=== PATIENT | female | born 1975 | race Caucasian/White ===

== ENCOUNTER → 2018-05-24 11:37 | Outpatient (CLI) | payer OTHER, SELFPAY | DX: Z23 Encounter for immunization (principal) | CPT/HCPCS: 90471; 90686 ==

== ENCOUNTER → 2019-02-01 08:26 | Outpatient (CLI) | payer OTHER, SELFPAY ==
--- NOTE | 2019-02-01 | DI.MG.S_ITS ---
BILATERAL DIGITAL SCREENING MAMMOGRAM 3D/2D WITH CAD: 02/01/2019 CLINICAL: Routine screening. Family history of breast cancer. Comparison is made to exams dated: 03/19/2017 mammogram, 01/01/2017 breast MRI, 06/04/2016 mammogram, and 01/14/2015 mammogram - [facility]. The tissue of both breasts is heterogeneously dense. This may lower the sensitivity of mammography. Current study was also evaluated with a Computer Aided Detection (CAD) system. No significant masses, calcifications, or other findings are seen in either breast. There has been no significant interval change. IMPRESSION: NEGATIVE There is no mammographic evidence of malignancy. A 1 year screening mammogram is recommended. This exam was interpreted at Station ID: [id number]. NOTE: For mammograms, a report in lay terms will be sent to the patient. Approximately 15% of breast malignancies will not be visualized mammographically. In the management of a palpable breast mass, a negative mammogram must not discourage biopsy of a clinically suspicious lesion. Electronically Signed By: Akira miles/franko:02/01/2019 11:41:02 copy to: Keila Thurman letter sent: Normal Exam ACR BI-RADS Category 1: Negative 3341F
== END ==
PROVIDERS: Visit Provider Obstetrics & Gynecology
DX: Z12.31 Encounter for screening mammogram for malignant neoplasm of breast (principal); Z80.3 Family history of malignant neoplasm of breast
CPT/HCPCS: 77063; 77067

== ENCOUNTER → 2019-06-06 14:34 | Outpatient (CLI) | payer OTHER, SELFPAY | PROVIDERS: PCP Family Medicine | DX: Z23 Encounter for immunization (principal) | CPT/HCPCS: 90471; 90686 ==

== ENCOUNTER → 2020-06-06 | Outpatient (CLI) | payer OTHER, SELFPAY | PROVIDERS: PCP Family Medicine; Referring Provider Internal Medicine; Visit Provider Internal Medicine | DX: Z23 Encounter for immunization (principal) | CPT/HCPCS: 90471; 90686 ==

== ENCOUNTER → 2020-07-18 09:17 | Outpatient (CLI) | payer OTHER, SELFPAY ==
[2020-07-18 10:51] LABS: COVID19 -Nasal RAPID Negative (Negative)
== END ==
PROVIDERS: PCP Family Medicine; Referring Provider Surgery; Visit Provider Surgery
DX: Z11.59 Encounter for screening for other viral diseases (principal); Z01.812 Encounter for preprocedural laboratory examination
CPT/HCPCS: 87635; C9803

== ENCOUNTER 2020-07-19 07:24 | Day surgery (SDC) | payer OTHER, SELFPAY ==
[2020-07-19] VITALS (13 sets, daily range): BP systolic 83–100; BP diastolic 42–56; PULSE 59–76; RESP 11–20; TEMP 36.2–37.1; O2SAT 97–100; BMI 23.6
[2020-07-19] MEDS: SODIUM CHLORIDE 0.9% 1,000 ML 200 ML IV ×2 (08:08→10:10)
--- NOTE | 2020-07-19 08:36 | PM.HP.1 ---
History of Present Illness History of Present Illness Date Patient Seen: 07/19/20 Time Patient Seen: 08:36 Chief complaint: SCREENING COLONOSCOPY Narrative: This is a 45-year-old woman with history of a change in bowel habits. She has been having difficulty with constipation. She denies any melena, hematochezia, unexplained weight loss, unexplained abdominal pain. She has a family history of colon cancer in 2 secondary relatives. No colon cancer in primary relatives. She is otherwise healthy and takes no home medications. ROS: Positive for constipation. Thirteen system review is otherwise negative other than as mentioned below and in HPI. PE: GENERAL: Well groomed and cooperative. Appears stated age. Answers questions promptly and appropriately. Vital signs noted. HENT: Normocephalic, atraumatic. Hearing intact. EYES: Conjunctiva pink, sclera white, no periorbital swelling. CARDIOVASCULAR: Regular rate. No pedal edema. RESPIRATORY: Non-tachypneic, breathing comfortably on room air. GASTROINTESTINAL: Abdomen soft and non-distended GENITALURINARY: No flank tenderness. MUSCULOSKELETAL: Equal tone and mass bilaterally. SKIN: Warm, dry, soft, appropriate color for ethnicity. No other lesions, rashes, or wounds. NEURO: Alert and Oriented X 3. No gross sensory deficits, or cognitive issues. PSYCH: Appropriate affect and mood. Patient History Medical History Bowel habit changes Constipation Infiltrative basal cell carcinoma (BCC) (~2015) Normal Papanicolaou smear Surgical History History of third molar tooth extraction Status post breast biopsy Status post Mohs micrographic surgery for basal cell carcinoma (BCC) (12/11/15) Family & Social History Family History Father Age: 77 Diabetes mellitus Grandmother Essential hypertension Mother Age: 76 Breast cancer Grandfather Diabetes mellitus Essential hypertension Grandmother Diabetes mellitus Grandfather No problems noted. Sister No problems noted. Family/Other Colorectal cancer Social History: household members spouse Tobacco & Substance use: Smoking Status Never smoker alcohol intake frequency a few times a week Substance Use Type does not use Meds Home Medications and Allergies Home Medications Medication Instructions Recorded Confirmed Type No Known Home Medications 07/19/20 07/19/20 History Allergies Allergy/AdvReac Type Severity Reaction Status Date / Time No Known Drug Allergies Allergy Verified 07/19/20 07:43 Exam Vital Signs (past 8 hours): - 07/19/20 07:47 Temperature 98.8 F Pulse Rate 67 Respiratory Rate 20 Blood Pressure 100/49 L Pulse Oximetry 100 Oxygen Delivery Method Room Air Assessment & Plan Assessment and plan (1) Bowel habit changes: Status: Acute (2) Constipation: Status: Acute Assessment & Plan narrative: Risks and benefits of screening colonoscopy and possible polypectomy were discussed with the patient including risk of bleeding, perforation, need for additional procedures, risks of anesthesia. The patient desires to proceed with the colonoscopy procedure. COVID-19 COVID-19 status: Negative Result date/Date tested (Pos, Neg/Pending): 07/18/20 Time Spent With Patient Time with patient: 15-24 minutes Quality VTE Deep Vein Thrombosis/Pulmonary Embolism Present on Admission: No
--- NOTE | 2020-07-19 08:40 | PM.OP.ENDO ---
Operative Date/Time/Diagnoses Date of procedure: 07/19/20 Time of procedure: 08:40 Pre-op diagnosis: Change in bowel habits Post-op diagnosis: other (Very tortuous colon, normal mucosa) Procedure & Clinicians Study performed: Colonoscopy Procedural sedation performed by the endoscopist Same procedure as scheduled: Yes Indications: Change in bowel habits Surgeon: Sandra Tellez Procedure Notes SCOAP/Timeout: Performed Procedure in detail: The patient was brought to the room and placed in left lateral decubitus position with all bony prominences padded. A time-out was performed and then the patient was given procedural sedation starting with 4 mg of Versed and 100 mcg of fentanyl. A total of 12 mg of Versed and 400 micro g of fentanyl were given for the entire procedure. Vitals were monitored throughout the procedure and remained stable. Once adequately sedated, the procedure was begun. A rectal exam was performed revealing no abnormalities. The colonoscope was then introduced to the rectum and advanced carefully through the rectal folds. I was not able to get around the rectosigmoid junction with the adult scope, and so the scope was withdrawn and a pediatric scope was brought into the room. I again began the procedure using a pediatric scope. I was able to navigate some very tortuous turns in the sigmoid colon. Throughout the procedure the colon was very tortuous and difficult to navigate. We used multiple maneuvers including the scope stiffener, counter pressure on the abdominal wall, and positioning the patient on her back. With all of these advanced maneuvers, we were able to eventually reach the cecum safely. The colon is very tortuous throughout its entire length, with somewhat poor muscular definition. The cecum was identified by the appendiceal orifice, the mucosal tri-fold, and the ileocecal valve. The scope was then retracted while rotating side to side and examining each mucosal fold. No mucosal abnormalities or polyps were seen. At the conclusion of the procedure retroflexion was performed and small grade 1-2 internal hemorrhoids without stigmata of bleeding were seen. The scope was then withdrawn from the rectum the procedure was concluded. The patient tolerated the procedure well and was transferred to the PACU in stable condition. Scope withdrawal time: 8 Sedation minutes: 54 Findings: other findings (Very tortuous colon) Specimen(s): none sent Complications: none Impression: Normal colonic mucosa, with extreme tortuosity and redundancy of the colon Post-procedure Recommendations: Colonscopy in 10 years (Consider anesthesiologist and MAC for future colonoscopies given the extreme tortuosity of the colon and difficulty of the procedure.) Follow up: as needed Disposition: PACU
[2020-07-19] MEDS: MIDAZOLAM 5 MG/5 ML VIAL IV (09:12)
[2020-07-19] MEDS: fentaNYL 250 MCG/5 ML INJ IV (09:12)
--- NOTE | 2020-07-19 09:47 | SUR.PHASEI ---
0945 assumed care from Zion Almazan RN. Pt awake/drowsy, oriented. Pedro Luis pain/nausea. HOB elevated, water given
--- NOTE | 2020-07-19 09:52 | SUR.PHASEI ---
Tan spoke to the patient.
--- NOTE | 2020-07-19 10:11 | SUR.PHASEI ---
hypotensive, sleepy, acknowledges that she feels light headed. HOB lowered. Pt returned to sleep.
--- NOTE | 2020-07-19 10:38 | SUR.PHASEII ---
pt. alert, comfortable, IV infusing without diff. 2nd L NS due to low bp. pt. nigel. well.
--- NOTE | 2020-07-19 15:43 | SUR.PHASEII ---
Late entry 1110- Pt sleepy. Arouses easily to voice. SBP as noted. Pt states that her SBP is normally <100. Current BP 89/56. Will discharge pt.
== END 2020-07-19 11:10 | disposition home or self-care (01) ==
PROVIDERS: PCP Family Medicine; Referring Provider Family Medicine; Visit Provider Surgery
PROC: 0DJD8ZZ Inspection of Lower Intestinal Tract, Via Natural or Artificial Opening Endoscopic (ICD-10-PCS; CPT 45378; principal; 2020-07-19 08:30)
DX: R19.4 Change in bowel habit (principal); K64.0 First degree hemorrhoids
CPT/HCPCS: 45378; 99152; 99153; J2250; J3010

== ENCOUNTER → 2020-09-04 16:45 | Outpatient (CLI) | payer OTHER, SELFPAY ==
[2020-09-04] MEDS: COVID-19 VACC(MODERNA-1)/PF 100 MCG/0.5 ML VIAL IM (17:08)
== END ==
PROVIDERS: PCP Family Medicine; Visit Provider Internal Medicine
DX: Z23 Encounter for immunization (principal)
CPT/HCPCS: 0011A; 91301

== ENCOUNTER → 2020-10-01 16:13 | Outpatient (CLI) | payer OTHER, SELFPAY ==
[2020-10-01] MEDS: COVID-19 VACC #2, MRNA(MOD) 100 MCG/0.5 ML VIAL IM (16:29)
== END ==
PROVIDERS: PCP Family Medicine; Visit Provider Internal Medicine
DX: Z23 Encounter for immunization (principal)
CPT/HCPCS: 0012A; 91301

== ENCOUNTER → 2021-03-14 15:22 | Outpatient (CLI) | payer OTHER, SELFPAY ==
--- NOTE | 2021-03-14 15:24 | DI.MG.S_ITS ---
BILATERAL DIGITAL SCREENING MAMMOGRAM 3D/2D WITH CAD: 03/14/2021 CLINICAL: Routine screening. Family history of breast cancer. Comparison is made to exams dated: 02/01/2019 mammogram, 01/01/2017 breast MRI, 06/04/2016 mammogram, and 01/14/2015 mammogram - [facility]. The tissue of both breasts is heterogeneously dense. This may lower the sensitivity of mammography. Current study was also evaluated with a Computer Aided Detection (CAD) system. There is a biopsy clip in the right breast. No significant masses, calcifications, or other findings are seen in either breast. There has been no significant interval change. IMPRESSION: NEGATIVE There is no mammographic evidence of malignancy. A 1 year screening mammogram is recommended. This exam was interpreted at Station ID: [id number]. NOTE: For mammograms, a report in lay terms will be sent to the patient. Approximately 15% of breast malignancies will not be visualized mammographically. In the management of a palpable breast mass, a negative mammogram must not discourage biopsy of a clinically suspicious lesion. Electronically Signed By: Royer corona/franko:03/14/2021 16:05:16 copy to: Keila Thurman letter sent: Normal Exam ACR BI-RADS Category 1: Negative 3341F
== END ==
PROVIDERS: PCP Family Medicine; Referring Provider Obstetrics & Gynecology; Visit Provider Obstetrics & Gynecology
DX: Z12.31 Encounter for screening mammogram for malignant neoplasm of breast (principal); Z80.3 Family history of malignant neoplasm of breast
CPT/HCPCS: 77063; 77067

== ENCOUNTER → 2021-03-28 11:44 | Outpatient (CLI) | payer OTHER, SELFPAY ==
[2021-03-28 12:50] LABS: Add Manual Diff / Slide Review NO; Basophils Absolute Auto 100 /uL (0-100); Basophils Percent Auto 1.2 % (0-2); Eosinophils Absolute Auto 100 /uL (0-450); Eosinophils Percent Auto 1.1 % (2-4); Hematocrit 41.6 % (36-46); Hemoglobin 13.9 g/dL (12.0-16.0); Lymphocytes Absolute Auto 1600 /uL (1100-4500); Lymphocytes Percent Auto 27.3 % (25-40); Mean Corpuscular HGB Conc 33.4 % (30-36); Mean Corpuscular Hemoglobin 28.2 PG (26-34); Mean Corpuscular Volume 84.4 fL (80-100); Monocytes Absolute Auto 400 /uL (0-900); Monocytes Percent Auto 6.8 % (3-14); Neutrophils Absolute Auto 3600 /uL (1500-7000); Neutrophils Percent Auto 63.6 % (50-75); Platelet Count 210 X10^3/uL (150-400); Red Blood Cell Count 4.93 X10^6/uL (4.0-5.2); Red Cell Distribution Width 14.3 % (11.6-14.8); White Blood Cell Count 5.7 X10^3/uL (4.5-11.0)
[2021-03-28 13:00] LABS: Alanine Aminotransferase 19 IU/L (<35); Albumin 4.5 g/dL (3.5-5.0); Albumin Globulin Ratio 1.6 (1.0-2.8); Alkaline Phosphatase 75 U/L (38-126); Aspartate Aminotransferase 30 IU/L (14-36); BUN Creatinine Ratio 29.7 (6-22); Bilirubin Total 0.4 mg/dL (0.2-1.3); Blood Urea Nitrogen 19 mg/dL (7-17); Calcium 9.7 mg/dL (8.4-10.2); Carbon Dioxide 27 mmol/L (22-32); Chloride 105 mmol/L (98-107); Creatine Kinase 51 U/L (30-135); Estimated Glomerular Filt Rate > 60.0 mL/min (>60); Globulin 2.9 g/dL (1.7-4.1); Glucose 93 mg/dL (70-100); HEMOLYSIS < 15 (0-50); Potassium 4.1 mmol/L (3.4-5.1); Sodium 139 mmol/L (137-145); Total Protein 7.4 g/dL (6.3-8.2)
[2021-03-28 13:09] LABS: D Dimer < 200 ng/mL (<230); Troponin I < 0.012 ng/mL (0.01-0.034)
[2021-03-28 13:29] LABS: TSH w/ Reflex to FT4 1.32 uIU/mL (0.47-4.68)
== END ==
PROVIDERS: PCP Family Medicine; Referring Provider Family Medicine; Visit Provider Family Medicine
DX: R07.9 Chest pain, unspecified (principal)
CPT/HCPCS: 36415; 80053; 82550; 84443; 84484; 85025; 85379

== ENCOUNTER → 2021-04-23 11:12 | Outpatient (CLI) | payer OTHER, SELFPAY ==
[2021-04-23 13:26] LABS: COVID19 -Nasal RAPID Negative (Negative)
== END ==
PROVIDERS: PCP Family Medicine; Visit Provider Physician Assistant
DX: Z20.822 Contact with and (suspected) exposure to COVID-19 (principal); Z01.812 Encounter for preprocedural laboratory examination
CPT/HCPCS: 87635

== ENCOUNTER → 2021-04-24 08:13 | Outpatient (CLI) | payer OTHER, SELFPAY ==
--- NOTE | 2021-04-24 09:12 | PM.TREADMILL ---
Cardiac Stress Test Report Referral & Results Date Patient Seen: 04/24/21 Time Patient Seen: 08:45 Requesting provider: Keila Thurman Indication: Chest pain Rest ECG: NSR Procedure Note: Today following both written and verbal informed consent, the patient was exercised according to a standard Jalen protocol. The patient exercised for a total of 12 minutes 46 seconds achieving a maximum heart rate of 166. Patient's maximum systolic blood pressure was 150. This was an estimated 12.8 METs. Normal hemodynamic response to exercise with low resting blood pressure. Excellent exercise capacity with FA I less than -20%. No signs or symptoms of angina. [address] depressions in inferior leads that resolved rapidly with rest. T-wave peaking in septal leads at rest. Impression: Low to intermediate probability of ischemia. May represent a prior infarct. Findings justify further workup. Please note: Actual ECG tracings can be found in the PACS system.
== END ==
PROVIDERS: PCP Family Medicine; Referring Provider Family Medicine; Visit Provider Family Medicine
DX: R07.2 Precordial pain (principal)
CPT/HCPCS: 93016; 93017; 93018

== ENCOUNTER 2021-05-11 22:09 | Observation (INO) | payer OTHER, SELFPAY ==
[2021-05-11 22:10] VITALS: BP 113/65; PULSE 77; RESP 16; TEMP 36.4; O2SAT 97; BMI 23.1
--- NOTE | 2021-05-11 22:17 | DI.RAD.S_ITS ---
PROCEDURE: XR CHEST 1V INDICATIONS: chest pain TECHNIQUE: One view of the chest was acquired. COMPARISON: [facility], , CHEST 2 VIEW, 11/22/2015, 15:30. FINDINGS: Surgical changes and devices: None. Lungs and pleura: Lungs are clear. No pleural effusions or pneumothorax. Mediastinum: Mediastinal contours appear normal. Heart size is normal. Bones and chest wall: No suspicious bony lesions. Overlying soft tissues appear unremarkable. IMPRESSION: No acute cardiopulmonary pathology. Dictated by: Gary Ramirez M.D. on 05/12/2021 at 0:14 Approved by: Gary Ramirez M.D. on 05/12/2021 at 0:14
[2021-05-11 22:20] VITALS: PULSE 70; RESP 24; O2SAT 99
[2021-05-11 22:30] VITALS: BP 113/65; PULSE 64; RESP 26; O2SAT 99
[2021-05-11 22:30] LABS: Add Manual Diff / Slide Review NO; Basophils Absolute Auto 100 /uL (0-100); Basophils Percent Auto 1.2 % (0-2); Eosinophils Absolute Auto 100 /uL (0-450); Eosinophils Percent Auto 1.7 % (2-4); Hematocrit 42.3 % (36-46); Hemoglobin 14.3 g/dL (12.0-16.0); Lymphocytes Absolute Auto 2700 /uL (1100-4500); Lymphocytes Percent Auto 44.6 % (25-40); Mean Corpuscular HGB Conc 33.7 % (30-36); Mean Corpuscular Hemoglobin 28.5 PG (26-34); Mean Corpuscular Volume 84.6 fL (80-100); Monocytes Absolute Auto 500 /uL (0-900); Monocytes Percent Auto 8.7 % (3-14); Neutrophils Absolute Auto 2600 /uL (1500-7000); Neutrophils Percent Auto 43.8 % (50-75); Platelet Count 217 X10^3/uL (150-400); Red Blood Cell Count 5.01 X10^6/uL (4.0-5.2); Red Cell Distribution Width 14.1 % (11.6-14.8)
[2021-05-11 22:36] LABS: Alanine Aminotransferase 18 IU/L (<35); Albumin 4.6 g/dL (3.5-5.0); Albumin Globulin Ratio 1.5 (1.0-2.8); Alkaline Phosphatase 74 U/L (38-126); Aspartate Aminotransferase 29 IU/L (14-36); BUN Creatinine Ratio 33.8 (6-22); Bilirubin Total 0.3 mg/dL (0.2-1.3); Blood Urea Nitrogen 25 mg/dL (7-17); Calcium 9.4 mg/dL (8.4-10.2); Carbon Dioxide 28 mmol/L (22-32); Chloride 104 mmol/L (98-107); Creatine Kinase 63 U/L (30-135); Estimated Glomerular Filt Rate > 60.0 mL/min (>60); Glucose 95 mg/dL (70-100); HEMOLYSIS < 15 (0-50); Lipase 83 U/L (23-300); Potassium 3.6 mmol/L (3.4-5.1); Sodium 139 mmol/L (137-145); Total Protein 7.6 g/dL (6.3-8.2)
[2021-05-11 22:48] LABS: Troponin I < 0.012 ng/mL (0.01-0.034)
[2021-05-11] MEDS: ASPIRIN 81 MG CHEW TAB 324 MG PO (22:56)
[2021-05-11 22:57] VITALS: BP 113/65; PULSE 66
[2021-05-11] MEDS: NITROGLYCERIN 0.4 MG SL TAB SL (22:57)
[2021-05-11 23:00] VITALS: BP 107/60; PULSE 69; RESP 26; O2SAT 97
--- NOTE | 2021-05-11 23:14 | ED.CHESTPAIN ---
HPI - Chest Pain General Chief Complaint: Chest Pain Stated Complaint: CHEST PAIN Time Seen by Provider: 05/11/21 22:27 Source: patient Mode of arrival: Ambulatory Limitations: no limitations History of Present Illness HPI narrative: Patient is a 46-year-old female presenting with left-sided chest pain which started today. She actually has had this pain previously, she had stress test of April 24 where she had [address] depression in inferior leads that resolved rapidly with rest. She was scheduled to have an echocardiogram in 1 week but developed a dull aching pain on the left side of her chest that has been constant throughout the day. It is nonradiating. She denies any shortness of breath with exertion. She is quite active and has a very stressful job. She was started on hormone replacement in December. She denies any palpitations. Discomfort is not going away. Related Data Previous Rx's Medication Instructions Recorded progesterone micronized 100 mg 100 mg PO QAM 30 Days #30 cap 01/08/21 capsule (Prometrium) estradiol 0.025 mg/24 hr See Rx Instructions .ROUTE 04/23/21 semiweekly transdermal patch .COMPLEX #8 patch (Zoe) Allergies Allergy/AdvReac Type Severity Reaction Status Date / Time No Known Drug Allergies Allergy Verified 03/28/21 10:51 Review of Systems Review of Systems Narrative: GENERAL: Denies chills, fatigue, malaise, fever, sweats, travel HEENT: Denies sinus pain, ear pain, sore throat, difficulty swallowing, neck pain RESPIRATORY: Denies dyspnea, cough, wheezing, hemoptysis, sputum. CARDIOVASCULAR: See HPI GASTROINTESTINAL: Denies nausea, vomiting, abdominal pain, diarrhea, constipation, melena. : Denies dysuria, frequency, incontinence, hematuria, urinary retention, flank pain. MUSCULOSKELETAL: Denies weakness, joint pain, or bony pain SKIN: No rash, no erythema, no pruritus NEUROLOGIC: Denies weakness, dizziness, headache, numbness, change in speech, confusion PSYCHIATRIC: No concerning psychosocial issues. 12 point review of systems is negative except for those stated above and HPI Patient History Medical History Bowel habit changes Constipation Infiltrative basal cell carcinoma (BCC) (~2015) Normal Papanicolaou smear Tortuous colon Surgical History History of third molar tooth extraction Status post breast biopsy Status post Mohs micrographic surgery for basal cell carcinoma (BCC) (12/11/15) Family History Father Age: 78 Diabetes mellitus Grandmother Essential hypertension Mother Age: 77 Breast cancer Grandfather Diabetes mellitus Essential hypertension Grandmother Diabetes mellitus Grandfather No problems noted. Sister No problems noted. Family/Other Colorectal cancer Social History household members: spouse Smoking Status: Never smoker Smoking Status: Never smoker alcohol intake frequency: a few times a week Substance Use Type: does not use Exam Initial Vital Signs Initial Vital Signs: Vital Signs Temperature 97.6 F 05/11/21 22:10 Pulse Rate 77 05/11/21 22:10 Respiratory Rate 16 05/11/21 22:10 Blood Pressure 113/65 05/11/21 22:10 Pulse Oximetry 97 05/11/21 22:10 GENERAL: Well-appearing 46-year-old female and in no acute distress. HEENT: Head atraumatic,EOMI, pupils reactive, face symmetric, moist mucous membranes CARDIOVASCULAR: Regular rate and rhythm without murmurs, rubs or gallops. RESPIRATORY: Breath sounds equal bilaterally, no wheezes rales or rhonchi. ABDOMEN: Soft, nontender. Normoactive bowel sounds all 4 quadrants. No guarding or rebound. EXTREMITIES: Normal range of motion, no clubbing or edema. Neurovascularly intact NEUROLOGICAL: Alert and oriented x4.Normal gait and speech. SKIN: Warm, dry, no laceration, no petechiae, no rashes or lesions. Scores HEART Score Heart Score history: Moderately Suspicious Heart Score EKG: Non-Specific repolarization disturbance Heart Score Age: 45-64 years old Heart Score risk factors: No known risk factors Heart Score troponin: < or = to normal limit Heart Score Total: 3 PERC Score Age greater than or equal to 50 years: No Heart rate greater than or equal to 100 bpm: No Room Air O2 Sat less than 95%: No Unilateral leg swelling: No Recent trauma or surgery: No Hemoptysis: No Prior PE or DVT: No Hormone Use: Yes Total PERC Score: 1 Course Orders Ordered: ED Orders 05/11/21 22:17 XR chest 1V Stat EKG-12 Lead Stat 05/11/21 22:18 Complete Blood Count AUTO DIFF Stat Comprehensive Metabolic Panel Stat Lipase Stat Troponin & CK Cardiac Panel Stat 05/11/21 23:05 D Dimer Stat 05/12/21 00:19 COVID19 - ADMIT (WOOD [employer]TER swab/PCR) Stat Acetaminophen (Acetaminophen 325 Mg Tablet) 650 mg PO Q6HR PRN PRN Reason: Fever/Mild Pain (1-3) Aspirin (Aspirin Ec 325 Mg Tablet) 325 mg PO DAILY [facility] Heparin Sodium (Porcine) (Heparin 5,000 Unit/Ml Vial) 5,000 unit SUBCUT BID [facility] Morphine Sulfate (Morphine 2 Mg/Ml Inj) 2 mg IV Q5MIN PRN PRN Reason: Chest Pain Naloxone HCl (Naloxone 0.4 Mg/Ml Vial) 0.2 mg IV Q2MIN PRN PRN Reason: Opiate Reversal Nitroglycerin (Nitroglycerin 0.4 Mg Sl Tab) 0.4 mg SL [id number] PRN PRN Reason: Chest Pain Discontinued Medications Aspirin (Aspirin 81 Mg Chew Tab) 324 mg PO NOW ONE Stop: 05/11/21 22:49 Last Admin: 05/11/21 22:56 Dose: 324 mg Documented by: CTRLARISSAER Nitroglycerin (Nitroglycerin 0.4 Mg Sl Tab) 0.4 mg SL NOW ONE Stop: 05/11/21 22:49 Last Admin: 05/11/21 22:57 Dose: 0.4 mg Documented by: CTRPACO Vital Signs Vital signs: Vital Signs - 8 hr 05/11/21 22:10 05/11/21 22:20 05/11/21 22:30 Temperature 97.6 F Pulse Rate 77 70 64 Respiratory Rate 16 24 26 H Blood Pressure 113/65 113/65 Pulse Oximetry 97 99 99 05/11/21 22:57 05/11/21 23:00 Temperature Pulse Rate 66 69 Respiratory Rate 26 H Blood Pressure 113/65 107/60 Pulse Oximetry 97 MDM - Chest Pain Lab Data Result diagrams: 05/11/21 22:18 05/11/21 22:18 Labs: Lab Results 05/11/21 05/11/21 05/11/21 Range/Units 22:18 22:18 23:05 WBC 6.0 (4.5-11.0) X10^3/uL RBC 5.01 (4.0-5.2) X10^6/uL Hgb 14.3 (12.0-16.0) g/dL Hct 42.3 (36-46) % MCV 84.6 (80-100) fL MCH 28.5 (26-34) PG MCHC 33.7 (30-36) % RDW 14.1 (11.6-14.8) % Plt Count 217 (150-400) X10^3/uL Neut % (Auto) 43.8 L (50-75) % Lymph % (Auto) 44.6 H (25-40) % Sterling % (Auto) 8.7 (3-14) % Eos % (Auto) 1.7 L (2-4) % Baso % (Auto) 1.2 (0-2) % Neut # (Auto) 2600 (1695-1641) /uL Lymph # (Auto) 2700 (7552-9069) /uL Sterling # (Auto) 500 (0-900) /uL Eos # (Auto) 100 (0-450) /uL Baso # (Auto) 100 (0-100) /uL D-Dimer < 200 (<230) ng/mL Sodium 139 (137-145) mmol/L Potassium 3.6 (3.4-5.1) mmol/L Chloride 104 (98-107) mmol/L Carbon Dioxide 28 (22-32) mmol/L BUN 25 H (7-17) mg/dL Creatinine 0.74 (0.52-1.04) mg/dL Estimated GFR > 60.0 (>60) mL/min BUN/Creatinine Ratio 33.8 H (6-22) Glucose 95 (70-100) mg/dL Calcium 9.4 (8.4-10.2) mg/dL Total Bilirubin 0.3 (0.2-1.3) mg/dL AST 29 (14-36) IU/L ALT 18 (<35) IU/L Alkaline Phosphatase 74 (38-126) U/L Total Creatine Kinase 63 (30-135) U/L CK-MB (CK-2) TNP CK-MB (CK-2) Rel Index TNP Troponin I < 0.012 (0.01-0.034) ng/mL Total Protein 7.6 (6.3-8.2) g/dL Albumin 4.6 (3.5-5.0) g/dL Globulin 3.0 (1.7-4.1) g/dL Albumin/Globulin Ratio 1.5 (1.0-2.8) Lipase 83 (23-300) U/L Imaging Data Chest x-ray: Radiologist's Impression: PROCEDURE:? XR CHEST 1V ? INDICATIONS:? chest pain ? TECHNIQUE:? One view of the chest was acquired.? ? COMPARISON:? [facility], , CHEST 2 VIEW, 11/22/2015, 15:30. ? FINDINGS:? ? Surgical changes and devices:? None.? ? Lungs and pleura:? Lungs are clear.? No pleural effusions or pneumothorax.? ? Mediastinum:? Mediastinal contours appear normal.? Heart size is normal.? ? Bones and chest wall:? No suspicious bony lesions.? Overlying soft tissues appear unremarkable.? ? IMPRESSION:? No acute cardiopulmonary pathology. ? ? Dictated by: Gary Ramirez M.D. on 05/12/2021 at 0:14? ECG Data Interpretation: Normal sinus rhythm rate 67 TN 0108 QRS 80 QTC 422 no T-wave inversions mild nonspecific ST depression no ST elevation. No priors to compare. MDM Narrative Medical decision making narrative: Patient had an abnormal stress test she is scheduled for an echocardiogram in 1 week. Dull aching consistent his chest discomfort that is worse today. She has a negative D-dimer in is low risk for pulmonary embolism. She has no family history and no risk factors. she is given nitroglycerin and aspirin which seemed to help her chest discomfort. Troponin negative. At this time with abnormal stress test and worsening chest discomfort needs further cardiac testing. Significant and severe bed shortage is in the state. Echocardiogram and perfusion study are available tomorrow at this hospital. Eliel ba urine P updated patient's symptoms test results accepts patient Discharge Plan Departure Patient Disposition: Admitted as Observation Clinical Impression: Chest pain Admit Date/Time: 05/12/21 00:06 Admit Provider: Cayla Vivar
[2021-05-11 23:36] LABS: D Dimer < 200 ng/mL (<230)
[2021-05-12] VITALS (8 sets, daily range): BP systolic 94–110; BP diastolic 48–63; PULSE 58–86; RESP 14–18; TEMP 36.2–36.6; O2SAT 98–100; BMI 23.1
--- NOTE | 2021-05-12 00:16 | DI.ECHO.S_ITS ---
[facility] [place] +---------+ [facility] +---------+ : : [address] : : : : [id number] : : : : Phone: [phone] Echocardiogram Report + + :Name: YADIRA TRIMBLE Study Date: 05/12/2021 Height: 64 in : :[employer] ReadingLocation: Weight: 135 lb : : Gender: Female BSA: 1.7 m2 : :: 1975 Age: 46 yrs BP: 113/65 mmHg: :Reason For Study: CHEST PAIN : :Ordering Physician: JASON, : :DAVID Performed By: Latosha Hancock : :Referring: DAVID GOMEZ : + + Interpretation Summary The ejection fraction is estimated to be 65-70%. Left ventricular global longitudinal strain average is -23.3%. Normal diastolic function. Normal RV systolic function. No significant valvular abnormalities. Unable to estimate PASP. Procedure: A two-dimensional transthoracic echocardiogram with color flow and Doppler was performed. The study quality was technically adequate. There is no prior echocardiogram noted for this patient. The patient was in sinus rhythm with heart rates between 60-78 bpm during the exam. Left Ventricle: The left ventricle is normal in size and wall thickness. The ejection fraction is estimated to be 65-70%. Left ventricular global longitudinal strain average is -23.3%. Diastolic parameters suggest probable normal left ventricular diastolic function and normal filling pressures. Right Ventricle: The right ventricle is normal in size and function. Atria: The left atrial size is normal. Right atrial size is normal. There is no Doppler evidence for an interatrial shunt. Mitral Valve: The mitral valve is normal in structure and function. There is trace mitral regurgitation. Aortic Valve: The aortic valve is trileaflet. The aortic valve opens well. There is no aortic valve stenosis. No aortic regurgitation is present. Tricuspid Valve: The tricuspid valve is normal in structure and function. There is mild tricuspid regurgitation. Pulmonic Valve: The pulmonic valve leaflets are thin and pliable; valve motion is normal. There is no pulmonic valvular regurgitation. Great Vessels: The aortic root is normal size. The dimensions of the ascending aorta are normal. The IVC is of normal diameter and collapses greater than 50% with a sniff. This suggests a low right atrial pressure of 3 mm Hg. Pericardium/ Pleura There is no pericardial effusion. There is no pleural effusion. MMode/2D Measurements & Calculations LVIDd: 4.6 cm LVOT diam: 1.9 cm LVIDs: 3.1 cm Ao root diam: 2.5 cm FS: 32.5 % asc Aorta Diam: 2.3 cm IVSd: 0.56 cm Ao Arch Diam (Prox Trans): 2.1 cm LVPWd: 0.71 cm LV ramírez. diameter/BSA (cm/m^2): 2.8 LV sys. diameter/BSA (cm/m^2): 1.9 LA A2 area: 18.4 cm2 RA long axis: 5.0 cm LA A4 area: 15.9 cm2 RA area: 13.6 cm2 LA length (vol): 4.9 cm RA vol: 31.6 ml LA vol: 50.3 ml RA : 19.1 ml/m2 LA vol index: 30.4 ml/m2 IVC diam: 1.7 cm RVD1 (basal): 2.6 cm TAPSE: 2.0 cm Doppler Measurements & Calculations Ao V2 max: 117.1 cm/sec LVOT Max Marvin: 102.3 cm/sec Ao V2 mean: 79.2 cm/sec LV V1 max P.2 mmHg Ao max P.5 mmHg LV V1 VTI: 20.8 cm Ao mean P.9 mmHg BETTE(I,D): 2.2 cm2 Ao V2 VTI: 26.8 cm BETTE(V,D): 2.5 cm2 sev ratio: 0.78 BETTE indexed to BSA (cm^2/m^2): 1.4 MV E max marvin: 79.6 cm/sec PA V2 max: 71.5 cm/sec MV A max marvin: 50.5 cm/sec PA V2 mean: 50.9 cm/sec MV E/A: 1.6 PA mean P.1 mmHg Med Peak E' Marvin: 12.3 cm/sec PA pr(Accel): 34.5 mmHg E/E' med: 6.5 Lat Peak E' Marvin: 15.0 cm/sec E/E' lat: 5.3 E/e' average: 5.9 MV dec time: 0.17 sec SV(ROGELIO): 60.2 ml Reading Physician:11:42 AM
[2021-05-12 01:58] LABS: COVID19 - ADMIT (NP swab/PCR) Negative (Negative)
--- NOTE | 2021-05-12 04:54 | P.HP_ITS ---
History of Present Illness History of Present Illness Date Patient Seen: 05/12/21 Time Patient Seen: 12:17 Chief complaint: CHEST PAIN Narrative: ?Patient is a 38-year-old female Deepa Modi who presented to the ED with left-sided chest pain which started yesterday evening.? She actually has had this pain previously in late FEBRUARY in which she had stress test of April 24 where she had [address] depression in inferior leads that resolved rapidly with rest.? She was scheduled to have an echocardiogram in 1 week but developed a dull tightness aching pain that comes & goes on the left side of her chest, nothing seems to change the intensity of the pain, nothing improves and nothing worsens the pain, and she has experienced nausea as well throughout the day.? Sh e denies any shortness of breath with exertion.? She is quite active.? She was started on hormone replacement in December.? She denies any palpitations.? Chest pain was resolved in the ED with nitroglycerin. At rest in bed upon admit patient states that chest pain has resolved, denies shortness of breath, headache, changes in vision, weakness, numbness, tingling, abdominal pain, nausea, vomiting, diarrhea, chills, body aches, cough, recent illness injury or trauma, or changes to medication. Upon admit patient's vitals are stable temp 97.6?, BP 107/60, HR 69, RR mildly tachypneic at 26, O2 saturation 97% on room air. Patient's CBC CMP and liver panel are all within normal limits, D-dimer, lipase, an initial troponin all within normal limits. Patient's chest x-ray demonstrated no acute cardio pulmonary processes. Patient's EKG I personally reviewed EKG sinus rhythm with a rate of 67 with short NJ, and nonspecific ST changes. Patient admitted for chest pain with abnormal stress test. Patient History Medical History Bowel habit changes Constipation Infiltrative basal cell carcinoma (BCC) (~2015) Normal Papanicolaou smear Tortuous colon Surgical History History of third molar tooth extraction Status post breast biopsy Status post Mohs micrographic surgery for basal cell carcinoma (BCC) (12/11/15) Family & Social History Family History Father Age: 78 Diabetes mellitus Grandmother Essential hypertension Mother Age: 77 Breast cancer Grandfather Diabetes mellitus Essential hypertension Grandmother Diabetes mellitus Grandfather No problems noted. Sister No problems noted. Family/Other Colorectal cancer Social History: household members spouse Prior Living Arrangements House Safety & Behavioral: Feels Safe in Current Yes Environment Suicidal Ideation Description None Tobacco & Substance use: Smoking Status Never smoker alcohol intake frequency a few times a week Substance Use Type does not use Meds Home Medications and Allergies Home Medications Medication Instructions Recorded Confirmed Type progesterone micronized 100 mg 100 mg PO QAM 30 Days #30 cap 01/08/21 05/12/21 Rx capsule (Prometrium) estradiol 0.025 mg/24 hr See Rx Instructions .ROUTE 04/23/21 05/12/21 Rx semiweekly transdermal patch .COMPLEX #8 patch (Zoe) Allergies Allergy/AdvReac Type Severity Reaction Status Date / Time No Known Drug Allergies Allergy Verified 03/28/21 10:51 Review of Systems Review of Systems Narrative: All 12 point systems reviewed with the patient and are negative except otherwise documented. Exam Vital Signs (past 8 hours): - 05/11/21 22:10 05/11/21 22:20 05/11/21 22:30 Temperature 97.6 F Pulse Rate 77 70 64 Respiratory Rate 16 24 26 H Blood Pressure 113/65 113/65 Pulse Oximetry 97 99 99 05/11/21 22:57 05/11/21 23:00 05/12/21 01:40 Temperature 97.6 F Pulse Rate 66 69 58 L Respiratory Rate 26 H 16 Blood Pressure 113/65 107/60 110/63 Pulse Oximetry 97 98 05/12/21 02:31 Temperature Pulse Rate Respiratory Rate Blood Pressure Pulse Oximetry 98 Oxygen Delivery Method Room Air Oxygen Flow Rate 0 Narrative Exam Narrative: General: Patient is a well-developed, well-nourished in no distress at this time. HEENT: Normocephalic, atraumatic, extraocular muscles intact, oral pharynx is clear and mucous membranes are moist. Neck is supple and symmetric, trachea is midline, no adenopathy, no thyroid enlargement, nontender, no masses palpated. Negative for JVD Chest: Normal AP diameter and contour without kyphoscoliosis, no nasal flaring, retractions, or tachypneic labored Lungs: Auscultation of all lung delgado are clear without adventitious sounds, wheezes, rhonchi, or rales. Cardio: S1 & S2 with regular rate and rhythm without murmur, rubs, or gallops, no carotid bruit, no cardiac pulsations present. Abdomen: Soft nontender, negative for organomegaly, or masses. Bowel sounds are present in all 4 quadrants without guarding or rebound, no CVA tenderness. Musculoskeletal: Muscle strength and tone are equal within normal limits, no deformity, crepitus, effusions, cyanosis, clubbing or edema present. Full range of motion intact radial and pedal pulses are normal. Skin: Warm dry and intact without rashes, ulcerations or petechiae. Neuro: Alert and orientated x3, strength is +5/5 in all extremities, sensation to touch intact, no gross deficits noted of cranial nerves. Psych: Patient has a well-kept appearance, appropriate affect, mental status attitude thought context and judgment are appropriate for age. Objective Labs Result Diagrams: 05/11/21 22:18 05/11/21 22:18 Labs: Laboratory Results - last 24 hr 05/11/21 05/11/21 05/11/21 22:18 22:18 23:05 WBC 6.0 RBC 5.01 Hgb 14.3 Hct 42.3 MCV 84.6 MCH 28.5 MCHC 33.7 RDW 14.1 Plt Count 217 Neut % (Auto) 43.8 L Lymph % (Auto) 44.6 H Creek % (Auto) 8.7 Eos % (Auto) 1.7 L Baso % (Auto) 1.2 Neut # (Auto) 2600 Lymph # (Auto) 2700 Creek # (Auto) 500 Eos # (Auto) 100 Baso # (Auto) 100 D-Dimer < 200 Sodium 139 Potassium 3.6 Chloride 104 Carbon Dioxide 28 BUN 25 H Creatinine 0.74 Estimated GFR > 60.0 BUN/Creatinine Ratio 33.8 H Glucose 95 Calcium 9.4 Total Bilirubin 0.3 AST 29 ALT 18 Alkaline Phosphatase 74 Total Creatine Kinase 63 CK-MB (CK-2) TNP CK-MB (CK-2) Rel Index TNP Troponin I < 0.012 Total Protein 7.6 Albumin 4.6 Globulin 3.0 Albumin/Globulin Ratio 1.5 Lipase 83 SARS-CoV-2 (PCR) 05/12/21 00:19 WBC RBC Hgb Hct MCV MCH MCHC RDW Plt Count Neut % (Auto) Lymph % (Auto) Creek % (Auto) Eos % (Auto) Baso % (Auto) Neut # (Auto) Lymph # (Auto) Creek # (Auto) Eos # (Auto) Baso # (Auto) D-Dimer Sodium Potassium Chloride Carbon Dioxide BUN Creatinine Estimated GFR BUN/Creatinine Ratio Glucose Calcium Total Bilirubin AST ALT Alkaline Phosphatase Total Creatine Kinase CK-MB (CK-2) CK-MB (CK-2) Rel Index Troponin I Total Protein Albumin Globulin Albumin/Globulin Ratio Lipase SARS-CoV-2 (PCR) Negative Assessment & Plan Assessment & Plan narrative: ?Patient is a 38-year-old female Deepa Modi who presented to the ED with left-sided chest pain which started yesterday evening.? She actually has had this pain previously in late FEBRUARY in which she had stress test of April 24 where she had [address] depression in inferior leads that resolved rapidly with rest.? She was scheduled to have an echocardiogram in 1 week. Patient admitted for chest rule out for echocardiogram tomorrow. 1. chest pain, acute, present on admission -chest pain resolved in ED with nitro -stress tests 04/24/[address] Butts : [address] depression in inferior leads that resolved rapidly with rest -EKG sinus rate 67 with short NJ and nonspecific ST changes-I personally reviewed -patient to be monitored on telemedicine, echocardiogram ordered for tomorrow -manage chest pain -Aspirin 81 mg q.day -labs ordered lipids, Mag, trend Tropx3 2. HRT, chronic, present on admission -continue patient's progesterone Code status: Full code Surrogate decision maker spouse Humza modi COVID PCR: Negative COVID vaccination: Moderna September 2020 DVT/VTE prophylaxis: Heparin 5000 units b.i.d. and SCDs Disposition: Estimated length of stay less than 2 midnights I have utilized all available immediate resources to obtain, update, or review the patient's current medications. I confirmed that the patient's advanced care plan is present, Code status is documented and/or surrogate decision maker is listed in the patient's medical record. Time Spent With Patient Critical Care time: I spent a total of [] minutes of critical care time on this patient's care today; this time is exclusive of procedural time.
[2021-05-12 05:01] LABS: INR 1.1 (0.9-1.3)
[2021-05-12 05:13] LABS: Cholesterol 224 mg/dL (140-199); HDL Cholesterol 71 mg/dL (40-60); LDL Cholesterol Calculated 143 mg/dL (<100); Magnesium 1.9 mg/dL (1.6-2.3); Triglycerides 48 mg/dL (35-150)
[2021-05-12 05:25] LABS: Troponin I < 0.012 ng/mL (0.01-0.034)
[2021-05-12] MEDS: HEPARIN 5,000 UNIT/ML VIAL 5000 UNIT SUBCUT (09:02)
[2021-05-12] MEDS: ASPIRIN EC 325 MG TABLET PO (09:02)
[2021-05-12 13:22] LABS: Troponin I < 0.012 ng/mL (0.01-0.034)
--- NOTE | 2021-05-12 15:35 | PC.NURSE ---
Addendum entered by Carin Cano R.N. 05/12/21 15:37: Noted serial troponins are negative (last one being done around noon). Original Note: Shift note: pt remained free of any chest pain/pressure. No c/o nausea. Vitals remained stable throughout shift. Up independently in the room. Pt had ECHO done at bedside and also stress test (results pending). Pt tolerating PO intake/soup and cookie after her stress test. Hipolito at bedside as well. Call light within reach. Encouraged to call for any needs.
--- NOTE | 2021-05-12 18:52 | PM.DS.1 ---
History of Present Illness History of Present Illness Chief complaint: CHEST PAIN Narrative: kedar is a 38-year-old female Deepa Anderson who presented to the ED with left-sided chest pain which started yesterday evening. She actually has had this pain previously in late FEBRUARY in which she had stress test of April 24 where she had [address] depression in inferior leads that resolved rapidly with rest. She was scheduled to have an echocardiogram in 1 week but developed a dull tightness aching pain that comes & goes on the left side of her chest, nothing seems to change the intensity of the pain, nothing improves and nothing worsens the pain, and she has experienced nausea as well throughout the day. She denies any shortness of breath with exertion. She is quite active. She was started on hormone replacement in December. She denies any palpitations. Chest pain was resolved in the ED with nitroglycerin. At rest in bed upon admit patient states that chest pain has resolved, denies shortness of breath, headache, changes in vision, weakness, numbness, tingling, abdominal pain, nausea, vomiting, diarrhea, chills, body aches, cough, recent illness injury or trauma, or changes to medication. Discharge Providers Provider Date of admission: 05/12/21 00:06 Discharge Date: 05/12/21 Primary care physician: Keila Thurman DO Discharge provider: Khris Major MD Summary Hospital Course Discharge Diagnosis: 1. Chest pains 2. Hyperlipidemia ECHO:The ejection fraction is estimated to be 65-70%. Left ventricular global longitudinal strain average is -23.3%. Normal diastolic function. Normal RV systolic function. No significant valvular abnormalities. Unable to estimate PASP. Myocardial perfusion stress test: Exercise 10+ minutes, had ST depressions, but normal myocardial perfusion imaging, considered low risk study Patient was admitted due to recurrent precordial chest discomfort concerning for unstable angina. EKG changes were nonspecific. She had serial negative troponins. Echo did not show anything concerning. Her myocardial perfusion stress test was read as normal. Patient has excellent exercise capacity. She does have moderate hyperlipidemia with total cholesterol 224, LDL 143, HDL 71, triglycerides 48. She does not have other risk factors for cardiac disease. She has been on keto diet and I suggested she consider increasing fiber in diet including fruits and vegetables. Discussed with PCP whether cholesterol-lowering medication therapy is warranted. Blood pressures have been in normal range. Advised to return to ED for any severe or persistent chest pain, shortness of breath or other concerning symptoms. Status at Discharge Overall status at discharge: patient is back to baseline Exam Vital Signs (past 8 hours): - 05/12/21 11:00 05/12/21 11:57 05/12/21 15:00 Temperature 97.5 F L Pulse Rate 65 Respiratory Rate 16 Blood Pressure 94/55 L Pulse Oximetry 100 100 98 05/12/21 15:28 Temperature 97.9 F Pulse Rate 86 Respiratory Rate 18 Blood Pressure 98/48 L Pulse Oximetry 98 Oxygen Delivery Method Room Air Oxygen Flow Rate 0 Objective Labs Result Diagrams: 05/11/21 22:18 05/11/21 22:18 Labs: Laboratory Results - last 24 hr 05/11/21 05/11/21 05/11/21 22:18 22:18 23:05 WBC 6.0 RBC 5.01 Hgb 14.3 Hct 42.3 MCV 84.6 MCH 28.5 MCHC 33.7 RDW 14.1 Plt Count 217 Neut % (Auto) 43.8 L Lymph % (Auto) 44.6 H Elbert % (Auto) 8.7 Eos % (Auto) 1.7 L Baso % (Auto) 1.2 Neut # (Auto) 2600 Lymph # (Auto) 2700 Elbert # (Auto) 500 Eos # (Auto) 100 Baso # (Auto) 100 PT INR D-Dimer < 200 Sodium 139 Potassium 3.6 Chloride 104 Carbon Dioxide 28 BUN 25 H Creatinine 0.74 Estimated GFR > 60.0 BUN/Creatinine Ratio 33.8 H Glucose 95 Calcium 9.4 Magnesium Total Bilirubin 0.3 AST 29 ALT 18 Alkaline Phosphatase 74 Total Creatine Kinase 63 CK-MB (CK-2) TNP CK-MB (CK-2) Rel Index TNP Troponin I < 0.012 Total Protein 7.6 Albumin 4.6 Globulin 3.0 Albumin/Globulin Ratio 1.5 Triglycerides Cholesterol LDL Cholesterol, Calc HDL Cholesterol Lipase 83 SARS-CoV-2 (PCR) 05/12/21 05/12/21 05/12/21 00:19 04:45 04:45 WBC RBC Hgb Hct MCV MCH MCHC RDW Plt Count Neut % (Auto) Lymph % (Auto) Elbert % (Auto) Eos % (Auto) Baso % (Auto) Neut # (Auto) Lymph # (Auto) Elbert # (Auto) Eos # (Auto) Baso # (Auto) PT 12.0 INR 1.1 D-Dimer Sodium Potassium Chloride Carbon Dioxide BUN Creatinine Estimated GFR BUN/Creatinine Ratio Glucose Calcium Magnesium Total Bilirubin AST ALT Alkaline Phosphatase Total Creatine Kinase CK-MB (CK-2) CK-MB (CK-2) Rel Index Troponin I < 0.012 Total Protein Albumin Globulin Albumin/Globulin Ratio Triglycerides Cholesterol LDL Cholesterol, Calc HDL Cholesterol Lipase SARS-CoV-2 (PCR) Negative 05/12/21 05/12/21 04:45 12:07 WBC RBC Hgb Hct MCV MCH MCHC RDW Plt Count Neut % (Auto) Lymph % (Auto) Elbert % (Auto) Eos % (Auto) Baso % (Auto) Neut # (Auto) Lymph # (Auto) Elbert # (Auto) Eos # (Auto) Baso # (Auto) PT INR D-Dimer Sodium Potassium Chloride Carbon Dioxide BUN Creatinine Estimated GFR BUN/Creatinine Ratio Glucose Calcium Magnesium 1.9 Total Bilirubin AST ALT Alkaline Phosphatase Total Creatine Kinase CK-MB (CK-2) CK-MB (CK-2) Rel Index Troponin I < 0.012 Total Protein Albumin Globulin Albumin/Globulin Ratio Triglycerides 48 Cholesterol 224 H LDL Cholesterol, Calc 143 H HDL Cholesterol 71 H Lipase SARS-CoV-2 (PCR) [facility] Medical History Bowel habit changes Constipation Infiltrative basal cell carcinoma (BCC) (~2015) Normal Papanicolaou smear Tortuous colon Surgical History History of third molar tooth extraction Status post breast biopsy Status post Mohs micrographic surgery for basal cell carcinoma (BCC) (12/11/15) Family History Father Age: 78 Diabetes mellitus Grandmother Essential hypertension Mother Age: 77 Breast cancer Grandfather Diabetes mellitus Essential hypertension Grandmother Diabetes mellitus Grandfather No problems noted. Sister No problems noted. Family/Other Colorectal cancer Social History household members: spouse Smoking Status: Never smoker Discharge Plan Discharge Plan Patient Disposition: Home Discharge orders & Medications Prescriptions: Continued estradiol [Zoe] 0.025 mg/24 hr patch semiweekly See Rx Instructions .ROUTE .COMPLEX Qty: 8 RF: 6 progesterone micronized [Prometrium] 100 mg capsule 100 mg PO QAM 30 Days Qty: 30 RF: 3 Follow up/Referrals: Keila Thurman DO [Primary Care Provider] - Diet/Activity/Treatments Diet: Regular Visit Report/Discharge Packet Instructions: DI for Chest Pain Discharge Data Primary Care Provider: Keila Thurman Attending Provider: Cayla Vivar
--- NOTE | 2021-05-12 21:15 | DI.NM.S_ITS ---
DATE OF SERVICE: 05/12/2021 PROCEDURE PERFORMED: Exercise perfusion study. INDICATIONS: Chest pain and abnormal exercise stress test. RADIOPHARMACEUTICAL: 25.3 millicurie technetium-99m Myoview IV was injected at stress and 10.8 millicurie technetium-99m Myoview IV was injected at rest. CARDIAC STRESS: The patient underwent exercise perfusion study under the supervision of an attending staff. She walked on Jalen protocol for 9 minutes and 53 seconds, achieved 91 percent of target heart rate and normal blood pressure response, 12.8 METs of workload and functional aerobic impairment -24 percent. Baseline EKG revealed sinus rhythm with possible LVH and nonspecific repolarization changes. During exercise, the patient has about 3.5-6.[address] depression in inferolateral leads, which got resolved in 1-3 minutes in recovery. The patient had a few seconds of chest discomfort. No significant arrhythmias seen. RAW DATA: Breast shadow was seen. GATED STUDY: Stress LV ejection fraction is 74 percent without any obvious wall motion abnormalities. Resting end-diastolic volume 83 mL. TID ratio 0.98, which is within normal limits. Lung/heart ratio 0.33, which is within normal limits. MYOCARDIAL PERFUSION SCAN: Stress supine images revealed normal myocardial perfusion. Resting supine images revealed mildly decreased perfusion of mid to distal anterior wall. CONCLUSION: Stress supine images revealed normal myocardial perfusion. Hence, I will call this study a normal myocardial perfusion study. Excellent exercise tolerance. Functional aerobic impairment -24 percent. Normal hemodynamic response. The patient has baseline repolarization changes, which got significantly worse during exercise. Slight chest discomfort. No significant arrhythmias seen. As far as perfusion scan is concerned, this is a low-risk myocardial perfusion scan. Deepa Anderson - JERRICA/wendy/diego doc#: [id number]/job#: [id number] dd: 05/12/2021 16:58:00 dt: 05/12/2021 20:49:00 DICTATING MD/COPIES TO: Jossie Santamaria MD COPIES MNE: MAURICIO;
== END 2021-05-12 18:12 | disposition home or self-care (01) ==
LOC: ED 05-12 → AC 05-12 00:09
PROVIDERS: Admitting Provider Nurse Practitioner Family; Emergency Provider Emergency Medicine; PCP Family Medicine; Referring Provider Emergency Medicine; Visit Provider Nurse Practitioner Family
DX: R07.9 Chest pain, unspecified (principal); R11.0 Nausea; E78.5 Hyperlipidemia, unspecified; Z20.822 Contact with and (suspected) exposure to COVID-19
CPT/HCPCS: 36415; 71045; 78452; 80053; 80061; 82550; 83690; 83735; 84484; 85025; 85379; 85610; 87635; 93005; 93010; 93017; 93306; 96372; 99284; C9803; G0378; A9502; J1644

== ENCOUNTER → 2021-06-12 15:05 | Outpatient (CLI) | payer OTHER, SELFPAY ==
[2021-05-12 01:46] VITALS: BMI 23.1
== END ==
PROVIDERS: PCP Family Medicine; Referring Provider Internal Medicine; Visit Provider Internal Medicine
DX: Z23 Encounter for immunization (principal)
CPT/HCPCS: 90471; 90686

== ENCOUNTER → 2021-07-11 13:26 | Outpatient (CLI) | payer OTHER, SELFPAY ==
[2021-05-12 01:46] VITALS: BMI 23.1
[2021-07-11] MEDS: COVID-19 VACC #3, MRNA(MOD) 50 MCG/0.25 ML VIAL IM (13:32)
== END ==
PROVIDERS: PCP Family Medicine; Visit Provider Internal Medicine
DX: Z23 Encounter for immunization (principal)
CPT/HCPCS: 0013A; 91301

== ENCOUNTER → 2021-09-10 09:10 | Outpatient (CLI) | payer OTHER, SELFPAY ==
[2021-05-12 01:46] VITALS: BMI 23.1
[2021-09-10 12:17] LABS: Alanine Aminotransferase 17 IU/L (<35); Albumin 4.7 g/dL (3.5-5.0); Albumin Globulin Ratio 1.7 (1.0-2.8); Alkaline Phosphatase 65 U/L (38-126); Aspartate Aminotransferase 25 IU/L (14-36); Bilirubin Total 0.5 mg/dL (0.2-1.3); Blood Urea Nitrogen 24 mg/dL (7-17); Calcium 9.4 mg/dL (8.4-10.2); Carbon Dioxide 28 mmol/L (22-32); Chloride 104 mmol/L (98-107); Cholesterol 233 mg/dL (140-199); Estimated Glomerular Filt Rate > 60.0 mL/min (>60); Globulin 2.8 g/dL (1.7-4.1); Glucose 80 mg/dL (70-100); HDL Cholesterol 92 mg/dL (40-60); HEMOLYSIS < 15 (0-50); LDL Cholesterol Calculated 130 mg/dL (<100); Potassium 4.7 mmol/L (3.4-5.1); Sodium 139 mmol/L (137-145); Total Protein 7.5 g/dL (6.3-8.2); Triglycerides 57 mg/dL (35-150)
[2021-09-10 12:21] LABS: High Sensitivity CRP - Cardiac 2.3 mg/L (1.0-3.0)
[2021-09-11 04:34] LABS: Apolipoprotein B 100 mg/dL (<90)
[2021-09-14 12:10] LABS: Lipoprotein (a) 35.7 nmol/L (<75.0)
== END ==
PROVIDERS: PCP Family Medicine; Referring Provider Family Medicine; Visit Provider Family Medicine
DX: E78.00 Pure hypercholesterolemia, unspecified (principal); Z83.3 Family history of diabetes mellitus
CPT/HCPCS: 36415; 80053; 80061; 82172; 83695; 86140

== ENCOUNTER → 2022-06-12 15:00 | Outpatient (CLI) | payer OTHER, SELFPAY ==
[2021-05-12 01:46] VITALS: BMI 23.1
== END ==
PROVIDERS: PCP Family Medicine; Referring Provider Internal Medicine; Visit Provider Internal Medicine
DX: Z23 Encounter for immunization (principal)
CPT/HCPCS: 90471; 90686

== ENCOUNTER → 2023-03-10 16:51 | Outpatient (CLI) | payer OTHER, SELFPAY ==
[2021-05-12 01:46] VITALS: BMI 23.1
--- NOTE | 2023-03-10 | DI.MG.S_ITS ---
BILATERAL DIGITAL SCREENING MAMMOGRAM 3D/2D WITH CAD: 03/10/2023 CLINICAL: Routine screening. Family history of breast cancer. Comparison is made to exams dated: 03/14/2021 mammogram, 02/01/2019 mammogram, and 06/04/2016 mammogram - [facility]. Both breasts are heterogeneously dense, which may obscure small masses (category c / 51-75% glandular tissue). Current study was also evaluated with a Computer Aided Detection (CAD) system. There is a biopsy clip in the right breast. No significant masses, calcifications, or other findings are seen in either breast. There has been no significant interval change. IMPRESSION: NEGATIVE There is no mammographic evidence of malignancy. A 1 year screening mammogram is recommended. Based on Tyrer-Cuzick model (a risk assessment model), the patient's lifetime risk is 29.0% and her 10 year risk is 8.2%. If a patient has an elevated risk, a more comprehensive evaluation should be considered and/or a referral to a genetic counselor. The [employer], [employer], and NCCN Guidelines advise the consideration of Breast MRI as an adjunct to screening mammography in patients whose Lifetime risk to develop breast cancer is 20% or higher. This exam was interpreted at Station ID: [id number]. NOTE: For mammograms, a report in lay terms will be sent to the patient. Approximately 15% of breast malignancies will not be visualized mammographically. In the management of a palpable breast mass, a negative mammogram must not discourage biopsy of a clinically suspicious lesion. Electronically Signed By: Diogenes cooney/franko:03/11/2023 11:29:06 copy to: Keila Thurman letter sent: Normal Exam ACR BI-RADS Category 1: Negative [id number]
== END ==
PROVIDERS: Referring Provider Obstetrics & Gynecology; Visit Provider Obstetrics & Gynecology
DX: Z12.31 Encounter for screening mammogram for malignant neoplasm of breast (principal); Z80.3 Family history of malignant neoplasm of breast
CPT/HCPCS: 77063; 77067

== ENCOUNTER → 2023-05-12 16:26 | Outpatient (CLI) | payer OTHER, SELFPAY ==
[2021-05-12 01:46] VITALS: BMI 23.1
--- NOTE | 2023-05-12 16:30 | DI.RAD.S_ITS ---
PROCEDURE: XR CHEST 2V INDICATIONS: chest xray TECHNIQUE: 2 views of the chest were acquired. COMPARISON: [facility], , XR CHEST 1V, 05/11/2021, 22:30. [facility], , CHEST 2 VIEW, 11/22/2015, 15:30. FINDINGS: Surgical changes and devices: None. Lungs and pleura: No consolidation or acute appearing airspace opacity identified. No pleural effusions or pneumothorax. Mediastinum: Mediastinal contours are normal. Heart size is normal. Bones and chest wall: No suspicious bony abnormalities. Soft tissues appear unremarkable. IMPRESSION: No acute cardiopulmonary abnormality. Dictated by: Elmer Black M.D. on 05/12/2023 at 18:27 Approved by: Elmer Black M.D. on 05/12/2023 at 18:29
== END ==
PROVIDERS: PCP Family Medicine; Referring Provider Family Medicine; Visit Provider Family Medicine
DX: R07.9 Chest pain, unspecified (principal)
CPT/HCPCS: 71046

== ENCOUNTER → 2023-05-25 07:12 | Outpatient (CLI) | payer OTHER, SELFPAY ==
[2021-05-12 01:46] VITALS: BMI 23.1
[2023-05-25 09:43] LABS: Add Manual Diff / Slide Review NO; Basophils Absolute Auto 100 /uL (0-100); Eosinophils Absolute Auto 100 /uL (0-450); Hematocrit 39.8 % (36-46); Hemoglobin 13.7 g/dL (12.0-16.0); Lymphocytes Absolute Auto 1300 /uL (1100-4500); Lymphocytes Percent Auto 25.2 % (25-40); Mean Corpuscular HGB Conc 34.3 % (30-36); Mean Corpuscular Hemoglobin 28.8 PG (26-34); Monocytes Absolute Auto 300 /uL (0-900); Monocytes Percent Auto 6.4 % (3-14); Neutrophils Absolute Auto 3400 /uL (1500-7000); Neutrophils Percent Auto 66.4 % (50-75); Platelet Count 198 X10^3/uL (150-400); Red Blood Cell Count 4.74 X10^6/uL (4.0-5.2); Red Cell Distribution Width 14.3 % (11.6-14.8); White Blood Cell Count 5.2 X10^3/uL (4.5-11.0)
[2023-05-25 10:05] LABS: Alanine Aminotransferase 15 IU/L (<35); Albumin 4.2 g/dL (3.5-5.0); Albumin Globulin Ratio 1.6 (1.0-2.8); Alkaline Phosphatase 48 U/L (38-126); Aspartate Aminotransferase 21 IU/L (14-36); BUN Creatinine Ratio 25.7 (6-22); Bilirubin Total 0.4 mg/dL (0.2-1.3); Blood Urea Nitrogen 18 mg/dL (7-17); Calcium 9.2 mg/dL (8.4-10.2); Carbon Dioxide 27 mmol/L (22-32); Chloride 104 mmol/L (98-107); Cholesterol 217 mg/dL (140-199); Creatine Kinase 56 U/L (30-135); Estimated Glomerular Filt Rate > 60 mL/min (>60); Globulin 2.7 g/dL (1.7-4.1); Glucose 76 mg/dL (70-100); HDL Cholesterol 68 mg/dL (40-60); HEMOLYSIS < 15 (0-50); LDL Cholesterol Calculated 134 mg/dL (<100); Sodium 137 mmol/L (137-145); Total Protein 6.9 g/dL (6.3-8.2); Triglycerides 76 mg/dL (35-150)
[2023-05-25 10:11] LABS: Troponin I < 0.012 ng/mL (0.01-0.034)
[2023-05-25 10:26] LABS: TSH w/ Reflex to FT4 1.37 uIU/mL (0.47-4.68)
== END ==
PROVIDERS: PCP Family Medicine; Referring Provider Family Medicine; Visit Provider Family Medicine
DX: E78.5 Hyperlipidemia, unspecified (principal); R07.9 Chest pain, unspecified; R94.39 Abnormal result of other cardiovascular function study
CPT/HCPCS: 36415; 80053; 80061; 82550; 84443; 84484; 85025

== ENCOUNTER → 2023-07-09 14:51 | Outpatient (CLI) | payer OTHER, SELFPAY ==
[2021-05-12 01:46] VITALS: BMI 23.1
== END ==
PROVIDERS: PCP Family Medicine; Referring Provider Family Medicine; Visit Provider Family Medicine
DX: Z23 Encounter for immunization (principal)
CPT/HCPCS: 90471; 90686

== ENCOUNTER → 2024-06-06 16:25 | Outpatient (CLI) | payer OTHER, SELFPAY ==
[2021-05-12 01:46] VITALS: BMI 23.1
--- NOTE | 2024-06-06 16:26 | DI.MG.S_ITS ---
BILATERAL DIGITAL SCREENING MAMMOGRAM 3D/2D WITH CAD: 06/06/2024 CLINICAL: Routine screening. Family history of breast cancer. Comparison is made to exams dated: 03/14/2021 mammogram, 03/10/2023 mammogram, and 02/01/2019 mammogram - [facility]. The breasts are heterogeneously dense, which may obscure small masses (category c / 51-75% glandular tissue). Current study was also evaluated with a Computer Aided Detection (CAD) system. There is a biopsy clip in the right breast. No significant masses, calcifications, or other findings are seen in either breast. There has been no significant interval change. IMPRESSION: NEGATIVE There is no mammographic evidence of malignancy. A 1 year screening mammogram is recommended. Based on Tyrer-Cuzick model (a risk assessment model), the patient's lifetime risk is 29.6% and her 10 year risk is 8.9%. If a patient has an elevated risk, a more comprehensive evaluation should be considered and/or a referral to a genetic counselor. The [employer], [employer], and NCCN Guidelines advise the consideration of Breast MRI as an adjunct to screening mammography in patients whose Lifetime risk to develop breast cancer is 20% or higher. This exam was interpreted at Station ID: [id number]. NOTE: For mammograms, a report in lay terms will be sent to the patient. Approximately 15% of breast malignancies will not be visualized mammographically. In the management of a palpable breast mass, a negative mammogram must not discourage biopsy of a clinically suspicious lesion. Electronically Signed By: Royer corona/franko:06/07/2024 08:54:18 copy to: Keila Thurman letter sent: Normal Exam ACR BI-RADS Category 1: Negative
== END ==
PROVIDERS: PCP Family Medicine; Referring Provider Family Medicine; Visit Provider Family Medicine
DX: Z12.31 Encounter for screening mammogram for malignant neoplasm of breast (principal); Z80.3 Family history of malignant neoplasm of breast; R92.333 Mammographic heterogeneous density, bilateral breasts
CPT/HCPCS: 77063; 77067

== ENCOUNTER → 2024-06-30 14:49 | Outpatient (CLI) | payer OTHER, SELFPAY ==
[2021-05-12 01:46] VITALS: BMI 23.1
== END ==
PROVIDERS: PCP Family Medicine; Referring Provider Internal Medicine; Visit Provider Internal Medicine
DX: Z23 Encounter for immunization (principal)
CPT/HCPCS: 90471; 90656

== ENCOUNTER → 2025-06-15 14:28 | Outpatient (CLI) | payer OTHER, SELFPAY ==
[2021-05-12 01:46] VITALS: BMI 23.1
--- NOTE | 2025-06-15 14:30 | DI.MG.S_ITS ---
MM screening mammo BI: 06/15/2025. BI-RADS: 2 CLINICAL: 50-year old female for bilateral screening mammogram. Tyrer-Cuzick lifetime risk of 30.1%. Current reported family history of breast cancer: mother. The patient had a prior right breast biopsy. PRIOR EXAMS 06/06/2024, 03/10/2023, 03/14/2021, 02/01/2019. MAMMOGRAPHY TECHNIQUE: 2D and 3D (tomosynthesis) digital mammographic views obtained, with additional images as needed for full coverage. Current study was also evaluated with a Computer Aided Detection (CAD) system. DENSITY C. The breasts are heterogeneously dense, which may obscure small masses. MAMMOGRAPHY FINDINGS Right: Biopsy marker present on the right. There are no suspicious masses, calcifications, or other findings in the breast. Left: No suspicious mass, asymmetry, microcalcification, or other abnormality seen. IMPRESSION: Right * No evidence of malignancy with benign findings. Left * No evidence of malignancy. RECOMMENDATIONS Bilateral * According to the Tyrer-Cuzick Risk Assessment Model, based on the information provided your patient has a greater than 20% lifetime risk for developing breast cancer. Consider supplemental screening with breast MRI and participation in a high risk screening program. * Annual screening mammography. OVERALL ASSESSMENT CATEGORY BI-RADS-2: Benign. The [employer] recommends annual screening mammography beginning at age 40 for women with average risk of breast cancer. ELECTRONICALLY SIGNED: Amanda Acevedo M.D. on 06/17/2025 at 10:59:50 PM PT Interpreting Station ID: [id number]
== END ==
LOC: MAMMO 14:29
PROVIDERS: PCP Family Medicine; Referring Provider Family Medicine; Visit Provider Family Medicine
DX: Z12.31 Encounter for screening mammogram for malignant neoplasm of breast (principal); Z12.39 Encounter for other screening for malignant neoplasm of breast; R92.333 Mammographic heterogeneous density, bilateral breasts; Z80.3 Family history of malignant neoplasm of breast; Z91.89 Other specified personal risk factors, not elsewhere classified
CPT/HCPCS: 77063; 77067